=== PATIENT | male | born 1995 | race Hispanic/Latino ===

== ENCOUNTER 2018-01-23 12:06 | Inpatient (IN) | payer MEDICAID ==
[2018-01-23 12:06] VITALS: BMI 32.1
[2018-01-23 12:22] VITALS: O2SAT 98
--- NOTE | 2018-01-23 12:26 | ED PDOC ---
HPI: Psych/Substance Abuse Time Seen by Provider: 01/23/18 12:25 Chief Complaint (Nursing): Psychiatric Evaluation Chief Complaint (Provider): crisis eval History Per: Patient Additional Complaint(s): 22 year old male presents for crisis eval. Patient states his PMD sent him here for evaluation of possible bipolar disorder. Patient states he has been having mood swings for the past several months but he denies suicidal or homicidal ideation. Patient also admits snorting heroin daily. He states he last snorted 3 hours prior to arrival. Patient offers no acute medical complaints at this time. PMD: [facility] Past Medical History Reviewed: Historical Data, Nursing Documentation, Vital Signs Vital Signs: Last Vital Signs Temp 98.4 F 01/23/18 12:17 Pulse 85 01/23/18 12:17 Resp 16 01/23/18 12:17 BP 138/88 01/23/18 12:17 Pulse Ox 98 01/23/18 12:17 - Medical History PMH: Seizures ([place] 01-29-16) - Family History Family History: States: No Known Family Hx - Living Arrangements Living Arrangements: With Family - Social History Current smoker - smoking cessation education provided: No Alcohol: Social Drugs: Opiates (snorts heroin) - Home Medications Home Medications: Ambulatory Orders Medication Instructions Recorded No Known Home Med 01/23/18 - Allergies Allergies/Adverse Reactions: Allergies Allergy/AdvReac Type Severity Reaction Status Date / Time No Known Allergies Allergy Verified 01/23/18 12:17 Review of Systems ROS Statement: Except As Marked, All Systems Reviewed And Found Negative Psych: Positive for: Other (mood swings, heroin abuse) Physical Exam - Reviewed Nursing Documentation Reviewed: Yes Vital Signs Reviewed: Yes - Physical Exam Appears: Positive for: Well, Non-toxic, No Acute Distress Skin: Positive for: Normal Color. Negative for: Rash Eye Exam: Positive for: Normal appearance Cardiovascular/Chest: Positive for: Regular Rate, Rhythm Respiratory: Positive for: Normal Breath Sounds Extremity: Positive for: Normal ROM Neurologic/Psych: Positive for: Alert, Oriented - Laboratory Results Result Diagrams: 01/23/18 16:16 01/23/18 16:16 - ECG O2 Sat by Pulse Oximetry: 98 Pulse Ox Interpretation: Normal - Other Rad CXR X-Ray: Interpreted by Me, Viewed By Me X-Ray Interpretation: no acute finding Medical Decision Making Medical Decision Makin22 year old here for crisis eval Plan: Crisis consult CBC CMP BAL UDS UA CXR As per crisis counselor and psychiatrist environmental education specialist, Dr. Rene, patient does meet criteria for admission. Patient signed himself in and agrees to stay. Patient is medically stable for psychiatric admission. 3:30 pm: Patient started to become acutely anxious 2 mg IM ativan given. Disposition - Clinical Impression Clinical Impression: Depression - Patient ED Disposition Is Patient to be Admitted: Yes - Disposition Disposition Time: 15:31 Condition: FAIR - Pt Status Changed To: Hospital Disposition Of: Inpatient - Admit Certification Admit to Inpatient:: After my assessment, the patient will require hospitalization for at least two midnights. This is because of the severity of symptoms shown, intensity of services needed, and/or the medical risk in this patient being treated as an outpatient. Results - Lab Results Lab Results: 01/23/18 01/23/18 01/23/18 16:16 16:16 16:16 WBC RBC Hgb Hct MCV MCH MCHC RDW Plt Count MPV Neut % (Auto) Lymph % (Auto) [place] % (Auto) Eos % (Auto) Baso % (Auto) Neut # (Auto) Lymph # (Auto) [place] # (Auto) Eos # (Auto) Baso # (Auto) Sodium 144 Potassium 3.5 L Chloride 104 Carbon Dioxide 24 Anion Gap 20 BUN 8 L Creatinine 0.7 L Est GFR ( Amer) > 60 Est GFR (Non-Af Amer) > 60 Random Glucose 104 Calcium 10.0 Total Bilirubin 1.0 AST 33 ALT 83 H Alkaline Phosphatase 79 Total Protein 8.8 H Albumin 5.1 H Globulin 3.7 Albumin/Globulin Ratio 1.4 Urine Color Yellow Urine Clarity Slighty-cloudy Urine pH 7.0 Ur Specific [place] 1.018 Urine Protein Negative Urine Glucose (UA) Neg Urine Ketones Negative Urine Blood Negative Urine Nitrate Negative Urine Bilirubin Negative Urine Urobilinogen 4.0 Ur Leukocyte Esterase Neg Urine RBC (Auto) 3 Urine Microscopic WBC 2 Ur Squamous Epith Cells < 1 Urine Bacteria Rare Urine Opiates Screen Positive H Urine Methadone Screen Negative Ur Barbiturates Screen Negative Ur Phencyclidine Scrn Negative Ur Amphetamines Screen Negative U Benzodiazepines Scrn Negative U Oth Cocaine Metabols Negative U Cannabinoids Screen Positive H Alcohol, Quantitative < 10 01/23/18 16:16 WBC 10.0 RBC 5.17 Hgb 15.0 Hct 44.0 MCV 85.1 MCH 28.9 MCHC 34.0 RDW 13.7 Plt Count 264 MPV 10.7 Neut % (Auto) 67.6 Lymph % (Auto) 27.0 [place] % (Auto) 4.4 Eos % (Auto) 0.4 Baso % (Auto) 0.6 Neut # (Auto) 6.8 Lymph # (Auto) 2.7 [place] # (Auto) 0.4 Eos # (Auto) 0.0 Baso # (Auto) 0.1 Sodium Potassium Chloride Carbon Dioxide Anion Gap BUN Creatinine Est GFR ( Amer) Est GFR (Non-Af Amer) Random Glucose Calcium Total Bilirubin AST ALT Alkaline Phosphatase Total Protein Albumin Globulin Albumin/Globulin Ratio Urine Color Urine Clarity Urine pH Ur Specific [place] Urine Protein Urine Glucose (UA) Urine Ketones Urine Blood Urine Nitrate Urine Bilirubin Urine Urobilinogen Ur Leukocyte Esterase Urine RBC (Auto) Urine Microscopic WBC Ur Squamous Epith Cells Urine Bacteria Urine Opiates Screen Urine Methadone Screen Ur Barbiturates Screen Ur Phencyclidine Scrn Ur Amphetamines Screen U Benzodiazepines Scrn U Oth Cocaine Metabols U Cannabinoids Screen Alcohol, Quantitative
[2018-01-23 16:28] LABS: BASO # 0.1 K/uL (0.0-0.2); BASO % 0.6 % (0.0-2.0); EOS % 0.4 % (0.0-4.0); LYMPH # 2.7 K/uL (1.0-4.3); MEAN CELL VOLUME 85.1 fl (80.0-94.0); MEAN CORPUSCULAR HEMOGLOBIN 28.9 pg (27.0-31.0); MEAN PLATELET VOLUME 10.7 fl (7.2-11.7); MONO # 0.4 K/uL (0.0-0.8); MONO % 4.4 % (0.0-10.0); NEUT # 6.8 K/uL (1.8-7.0); NEUT % 67.6 % (50.0-75.0); RBC 5.17 Mil/uL (4.40-5.90); RED CELL DISTRIBUTION WIDTH 13.7 % (11.5-14.5)
[2018-01-23 16:37] LABS: ALB/GLOB RATIO 1.4 (1.0-2.1); ALBUMIN 5.1 g/dL (3.5-5.0); ALT/SGPT 83 U/L (21-72); AST/SGOT 33 U/L (17-59); BLOOD UREA NITROGEN 8 mg/dl (9-20); GFR AFRICAN-AMERICAN > 60; GFR NON-AFRICAN AMERICAN > 60
[2018-01-23 16:41] LABS: BARBITURATES, UR NEGATIVE (NEGATIVE); BENZODIAZEPINES, UR NEGATIVE (NEGATIVE); OPIATES, UR POSITIVE (NEGATIVE); PHENCYCLIDINE, UR NEGATIVE (NEGATIVE)
--- NOTE | 2018-01-23 16:43 | RAD ---
Date of service: 01/23/2018 HISTORY: clearance COMPARISON: No prior. FINDINGS: LUNGS: No active pulmonary disease. PLEURA: No significant pleural effusion identified, no pneumothorax apparent. CARDIOVASCULAR: Normal. OSSEOUS STRUCTURES: No significant abnormalities. VISUALIZED UPPER ABDOMEN: Normal. OTHER FINDINGS: None. IMPRESSION: No active disease. Concordant results with the preliminary interpretation rendered by the emergency department physician procedure.
[2018-01-23 16:45] LABS: SQUAMOUS EPITHIAL < 1 /hpf (0-5); URINE BACTERIA RARE (<OCC); URINE BILIRUBIN NEGATIVE (NEGATIVE); URINE BLOOD NEGATIVE (NEGATIVE); URINE CLARITY SLIGHTY-CLOUDY (Clear); URINE COLOR YELLOW (YELLOW); URINE GLUCOSE (UA) NEG (Normal); URINE LEUKOCYTE ESTERASE NEG Leu/uL (Negative); URINE PROTEIN NEGATIVE (NEGATIVE)
[2018-01-23] MEDS ORDERED: DiphenhydrAMINE 50 mg/ml Inj IM PRN (20:25)
[2018-01-23] MEDS ORDERED: Alum-Mag Hydrox-Simethicone Susp (30 mL) PO PRN (20:25)
[2018-01-23] MEDS ORDERED: Magnesium Hydroxide Susp 30 ml UD PO PRN (20:25)
--- NOTE | 2018-01-23 21:58 | PCM.BM ---
<Kelley Damon P - Last Filed: 01/23/18 21:56> Treatment Plan Problems - Problems identified on initial assessmt Suicidal Ideation Date Initiated: 01/23/18 Time Initiated: 21:57 Assessment reference: NA Status: Active Anxiety Date Initiated: 01/23/18 Time Initiated: 21:57 Assessment reference: NA Status: Active Hopelessness/Helplessness Date Initiated: 01/23/18 Time Initiated: 21:57 Assessment reference: NA Status: Active Treatment assets and liabiliti Patient Assests: cooperative, ADL independent, physically healthy, good support system, negotiates basic needs, cognitively intact Patient Liabilities: financial problems, poor support system, relationship conflicts, substance abuse - Milieu Protocol Maintain good personal hygiene: daily Encourage regular showers, daily Remind patient to perform daily oral care, daily Assist patient to perform ADL's Conduct patient checks and document Observation sheet: Q15 minutes Maintain personal safety: every shift Educate patient to report safety concerns to staff, every shift Monitor environment for contraband/sharps Medication safety: Monitor for expected outcome, potential side effects: every shift, Assess barriers to learning: every shift, Assess readiness for medication education: every shift <Mikal Rene - Last Filed: 01/28/18 12:38> - Diagnosis (1) Opioid abuse Status: Acute Interventions: motivational therapy 01/28/18 12:38
[2018-01-24] MEDS: Multivitamin With Minerals Tab PO SCH (09:24)
[2018-01-24 12:45] LABS: T4 14.4 ug/dl (5.5-11.0)
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
[2018-01-25] MEDS: Multivitamin With Minerals Tab PO SCH (09:18)
--- NOTE | 2018-01-25 13:24 | PCM.PYCHPN ---
Psychiatric Progress Note - Psychiatric Progress Note Patient seen today, length of contact: pt evaluated discussed with team chart reviewed Patient Chief Complaint: I am going through severe pain Problems Identified/Issues Discussed: pt evaluated with treatment team, presenting with labile mood and affect, pt has been experiencing marked physiological withdrawal symptoms, discussed with pt increasing dose of neurontin for pain and anxiety, also depakote for mood stabilization motivational therapy provided in reference to opiate use, discussed with pt reference to suboxone clinic on discharge pt agreed to be on maintenance treatment pt denied any will current suicidal or homicidal ideation, denied perceptual disturbances Medical Problems: pt has hx of two admissions for detox DSM 5 Symptoms Update: substance induced mood disorder opiate use severe bipolar disorder Medication Change: Yes (start depakote) Medical Record Reviewed: Yes Mental Status Examination - Cognitive Function Orientation: Person, Place Memory: Intact Attention: WNL Concentration: Poor Association: WNL Fund of Knowledge: WNL Decription of patient's judgement and insights: partial insight , poor judgment - Mood Mood: Depressed, Anxious - Affect Affect: Constricted, Depressed - Speech Speech: Loud - Formal Thought Process Formal Thought Process: Circumstantial Psychotic Thoughts and Behaviors: pt denied perceptual disturbances, non elicited - Suicidal Ideation Suicidal Ideation: No - Homicidal Ideation Homicidal Ideation: No Goal/Treatment Plan - Goal/Treatment Plan Need for Continued Stay: Severe depression anxiety, Discharge may exacerbated symptoms Progress Toward Problem(s) and Goals/Treatment Plan: clonidine protocol for opiate withdrawal/ monitor vitals for symptoms and signs of withdrawal neurontin 600mg tid for anxiety remeron 15mg qhs for insomnia depakote 1500mg daily motivational group and supportive therapy
[2018-01-25] MEDS ORDERED: DiphenhydrAMINE 50 mg/ml Inj IM STA (13:39)
[2018-01-26] MEDS: Divalproex 500 mg DR(BID formulation) PO SCH ×2 (06:16→21:08)
[2018-01-26] MEDS: Multivitamin With Minerals Tab PO SCH (08:30)
--- NOTE | 2018-01-26 08:51 | PCM.PYCHPN ---
Psychiatric Progress Note - Psychiatric Progress Note Patient seen today, length of contact: pt evaluated discussed with team chart reviewed Patient Chief Complaint: pt is still very labile and very anxious and denies any withdrawl from opiates and denies side effects to meds .pt remains with poor insight and poor judgement and need further stabilization.pt has poor sleep and has racing thoughts. Medication Change: Yes (increase depakote) Medical Record Reviewed: Yes Mental Status Examination - Cognitive Function Orientation: Person, Place Memory: Intact Attention: WNL Concentration: Poor Association: WNL Fund of Knowledge: WNL - Mood Mood: Depressed, Anxious - Affect Affect: Constricted, Depressed - Speech Speech: Loud - Formal Thought Process Formal Thought Process: Circumstantial - Suicidal Ideation Suicidal Ideation: No - Homicidal Ideation Homicidal Ideation: No Goal/Treatment Plan - Goal/Treatment Plan Need for Continued Stay: Severe depression anxiety, Discharge may exacerbated symptoms Progress Toward Problem(s) and Goals/Treatment Plan: Titrate depakote after adjusting the meds and check the blood level in am. pt encouraged to stay and comply with treatment .
[2018-01-27] MEDS: Multivitamin With Minerals Tab PO SCH (08:10)
--- NOTE | 2018-01-27 12:47 | PCM.PYCHPN ---
Psychiatric Progress Note - Psychiatric Progress Note Patient seen today, length of contact: pt evaluated discussed with team chart reviewed Patient Chief Complaint: pt is very paranoid today demanding to be d/c and still very labile and very anxious and denies any withdrawl from opiates and denies side effects to meds .pt remains with poor insight and poor judgement and need further stabilization.pt has poor sleep and has racing thoughts. Medication Change: Yes (increase depakote) Medical Record Reviewed: Yes Mental Status Examination - Cognitive Function Orientation: Person, Place Memory: Intact Attention: WNL Concentration: Poor Association: WNL Fund of Knowledge: WNL - Mood Mood: Depressed, Anxious - Affect Affect: Constricted, Depressed - Speech Speech: Loud - Formal Thought Process Formal Thought Process: Paranoia, Flight of ideas, Circumstantial - Suicidal Ideation Suicidal Ideation: No - Homicidal Ideation Homicidal Ideation: No Goal/Treatment Plan - Goal/Treatment Plan Need for Continued Stay: Severe depression anxiety, Discharge may exacerbated symptoms Progress Toward Problem(s) and Goals/Treatment Plan: pt has remained very labile and irrtible with paranoid ideation and remains with poor insight and need further inpt stabilization and pt refuses to stay and is high risk to self and has given 48 hr letter and will be screened for involuntary admission. will add seroquel 200 mg hs to stabilize the pt .
[2018-01-27 18:37] VITALS: BP 133/91; PULSE 107; RESP 20; TEMP 98.1
[2018-01-27] MEDS: Divalproex 500 mg DR(BID formulation) PO SCH (21:06)
[2018-01-28] MEDS: Multivitamin With Minerals Tab PO SCH (08:34)
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
== END 2018-01-28 10:15 | disposition left against medical advice (07) | DRG 746 ==
LOC: H.ER 12:06 → H.ERHOLD 16:18 → H.PSYCH 20:30
PROVIDERS: ADMIT Psychiatry & Neurology Psychiatry; ATTEND Psychiatry & Neurology Psychiatry
PROC: HZ57ZZZ Individual Psychotherapy for Substance Abuse Treatment, Motivational Enhancement (ICD-10-PCS; principal; 2018-01-23)
PROC: HZ59ZZZ Individual Psychotherapy for Substance Abuse Treatment, Supportive (ICD-10-PCS; 2018-01-23)
PROC: GZHZZZZ Group Psychotherapy (ICD-10-PCS; 2018-01-23)
DX: F11.94 Opioid use, unspecified with opioid-induced mood disorder (principal); R56.9 Unspecified convulsions; F31.60 Bipolar disorder, current episode mixed, unspecified; G47.00 Insomnia, unspecified; G25.9 Extrapyramidal and movement disorder, unspecified; T43.4X5A Adverse effect of butyrophenone and thiothixene neuroleptics, initial encounter; F43.10 Post-traumatic stress disorder, unspecified; R45.851 Suicidal ideations